=== PATIENT | male | born 1950 | race Caucasian/White ===

== ENCOUNTER 2023-03-27 08:29 | Outpatient (CLI) | payer MEDICARE, OTHER, SELFPAY ==
--- NOTE | 2023-03-27 09:57 | W.ANESCHARGE ---
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
--- NOTE | 2023-03-27 11:52 | W.ANESCHARGE ---
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
== END 2023-03-27 08:30 | disposition home or self-care (01) ==
LOC: OP CLINIC 08:33
PROVIDERS: PCP Family Medicine; Visit Provider Internal Medicine Gastroenterology
DX: Z12.11 Encounter for screening for malignant neoplasm of colon (principal); K63.5 Polyp of colon
CPT/HCPCS: 00811; 45380; 88305; 99100; J2704

== ENCOUNTER 2024-01-26 08:45 | Outpatient (RCR) | payer MEDICARE, OTHER, SELFPAY ==
--- NOTE | 2024-01-02 10:28 | PT.OPEX ---
PT [place] Outpatient Eval PT [facility] Outpatient Eval Start: 01/02/24 07:44 Freq: Status: Active Protocol: Document 01/02/24 07:44 KLV (Rec: 01/02/24 10:27 KLV [id number]) E-signed By Carrie England, PT Physical Therapy Outpatient Evaluation Insurance Information Recert Due Date 03/28/24 Insurance Name Medicare B,[employer] Medical Diagnosis Right knee OA Treating Diagnosis Right knee pain Referring MD Ovalle Subjective Subjective Luis (Josep) reports to PT with primary complaint of right knee pain following incident where he ran into a cabinet in medial aspect of knee. Denies swelling or bruising following. Imaging indicating end stage OA patellofemoral joint. He received a cortisone injection 3 weeks ago which has helped some with the pain but has not fully resolved. He currently has pain with descending> ascending stairs, squatting, bending and walking longer distances. Would like to resume normal walking and stair negotiation with minimal pain. Has not resumed any exercise since the injury occurred. PMH: L TKA 2016, h/o stent Pain Comments 4-10/24 worst Date of Last Physician Visit 12/11/23 Current Work Status Retired Objective Other/Pertinent Objective Knee ROM: -R 0-131 -L 0-120 Quad set good SLR good except extensor lag past 20 deg Vera test: + R Amelia test: + B L>R Hamstring 90/90: -R 40 deg short of full extension -L 35 deg short of full extension Gross hip ROM: WNL B LE Strength (R/L): -Knee Ext: R: 4+/5, L: 5/5 -Knee Flex: R: 5/5, L: 5/5 -Hip Abd: R: 4+/5, L: 5/5 -Hip Add: R: 5/5, L: 5/5 -Hip Ext: R: 5/5, L: 5/5 -Hip Flx: R: 4+/5, L: 5/5 TTP popliteal fossa No TTP joint line Patellar mobilization WNL all directions Functional Test Performed & Score LEFS: 60/80 Assessment Assessment/Impression Patient is a 73 year old male presenting to physical therapy for evaluation and treatment of right knee pain with x-ray indicating end stage patellofemoral OA. Patient presents with muscular restriction in hip flexor, hamstring and ITB as well as poor squatting mechanics and quad strength. These impairments are limiting the patients ability to walk long distances, negotiate stairs and squat without pain. Patient appears motivated to participate in PT and presents with good prognosis to improve mobility, strength, proprioception and return to functional activities with skilled physical therapy intervention. Plan of Care Rehabilitation Potential Good Physical Therapy Goals In 4 visits: Pt will demonstrate WNL hip and knee ROM in order to squat with pain <2/10 Pt will be able to negotiate stairs with reciprocal gait with <2/10 pain Pt will be able to walk for 30 min with <2/10 pain for community ambulation In 8 visits: Pt will exhibit 9 pt improvement in LEFS Outcome measure to demonstrate functional improvement and progress towards goals. Pt will be able to negotiate stairs with reciprocal gait with near 0/10 pain Pt will be able to walk for 60 min with <2/10 pain for cardiovascular fitness Treatment Plan/Direct Interventions Gait Training,Ice/Cold/ Vasopneumatic,Joint Mobilization,Manual Therapy, Neuromuscular Re-ed,Self-Care/ Home Management,Therapeutic Activities,Therapeutic Exercises Frequency/Duration 1x/wk for 4 weeks with additional 2-4 sessions prn based on progress Patient Will Be Discharged From Therapy Completion of LTG(s), Independent w/HEP, Independently Progressing Evaluation Billing Untimed Code Treatment Minutes 20 Complexity Low Certification Information Initial Certification Date 01/02/24 Ending Certification Date 03/28/24 Provider Signature Required Yes Provider Signature Shows Agreement With POC & Medical Necessity Physician NPI Number Write NPI# Here Physician Comment/Change : Physician Signature & Date Requested Please Sign/Date Here
== END 2024-01-26 09:20 | disposition home or self-care (01) ==
PROVIDERS: PCP Family Medicine; Visit Provider Orthopaedic Surgery
DX: M17.11 Unilateral primary osteoarthritis, right knee (principal); M25.561 Pain in right knee; Z51.89 Encounter for other specified aftercare
CPT/HCPCS: 97110; 97161

== ENCOUNTER 2024-04-18 06:09 | Day surgery (SDC) | payer MEDICARE, OTHER, SELFPAY ==
[2024-04-18] VITALS (25 sets, daily range): BP systolic 97–156; BP diastolic 53–101; PULSE 38–53; RESP 9–16; TEMP 36.3–36.8; O2SAT 95–100; BMI 26.4
--- OUTSIDE RECORDS SUMMARY | 2024-04-18 06:13 | XMS_ITS | Continuity of Care Document ---
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
--- OUTSIDE RECORDS SUMMARY | 2024-04-18 06:13 | XMS_ITS | Clinical Summary ---
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 0 04/05/20 21 Active Needle, Disp, 22 G 22 gauge x 1 ndleIndications:H ypogonadism in male As directed. 100 Each 3 01/18/20 23 Active Syringe with Needle, Disp, 3 mL 22 gauge x 1 syrgIndications:H ypogonadism in male As directed. 100 Each 3 01/18/20 23 Active testosterone cypionate (DEPO-TESTOSTERON E) 200 mg/mL injectionIndicati ons:Hypogonadism in male INJECT 100 MG(0.5ML) INTRAMUSCULAR EVERY 2 WEEKS 6 mL 1 10/31/19 24 Active lisinopriL (PRINIVIL; ZESTRIL) 20 mg tabletIndications :Benign essential HTN TAKE ONE TABLET BY MOUTH ONE TIME DAILY 90 Tablet 3 10/31/19 24 Active simvastatin (ZOCOR) 40 mg tabletIndications :Hyperlipidemia, unspecified hyperlipidemia type TAKE ONE TABLET BY MOUTH ONE TIME DAILY 90 Tablet 3 10/31/19 24 Active sildenafiL, pulm.hypertension , (REVATIO) 20 mg tabletIndications :Erectile dysfunction of organic origin 2 to 5 oral daily as needed. 90 Tablet 3 10/31/19 24 Active meclizine (ANTIVERT) 25 mg tabletIndications :Benign paroxysmal positional vertigo, unspecified laterality Take 1 Tablet (25 mg) by mouth 3 times daily if needed for Vertigo. 30 Tablet 01/17/20 24 Active methylPREDNISolon e (Medrol, Alli,) 4 mg tabletIndications :Benign paroxysmal positional vertigo, unspecified laterality Take by mouth as instructed per packaging. 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 Ovalle, [facility]) 04/04/2024 Travel 01/25/2024 1:00 PM CDT Office Visit [facility] [address] [place] [address] Trina Loco MD Follow Up (Hypogonadism) 01/25/2024 Travel 01/17/2024 1:45 PM CDT Office Visit [facility] [address] [place] [phone] Danita Ching PA Lightheaded (Lightheadedness, worse in morning, feeling off balance. 01/15/24 noted symptoms started while lying in bed. /History of vertigo.) 01/17/2024 Travel from Last 3 Months Immunizations Name Administration Dates Next Due AMB INFLUENZA IIV3 (AGE 65+ YRS) PF (Flu Clinic Only) 02/01/2018 HepA-HepB (Twinrix) 07/23/2018,06/18/20182018 Influenza RIV4 (Age 18+ Year s) PRESERV FREE 03/05/2019 Influenza Virus, Unspecified 01/31/2017, 03/29/2016,02/06/2015,03/11,01/23/2013,03/16/2012,01/21/2011 Influenza, High-dose Inactivated 03/11/2024 Influenza, High-dose Quadriv alent Inactivated 02/09/2023,02/11/2022,02/26/2021,02/06 Pneumococcal Poly,23-Valent (Pneumovax) 11/21/2019 Pneumococcal conj 13-Valent (Prevnar 13) 06/18/2018 Tdap 08/06/2018,12/30/2008 Typhoid (injectable) 06/25/2018 Zoster (Shingrix-RZV, recombinant) 09/27/2019, Zoster (Zostavax-ZVL, live) 06/20/2014 Family History Medical History Relation Name Comments Melanoma Brother 1 Diabetes Brother 2 Heart attack Father late Lymphoma Father 70's Cancer-colon Mother 70's Anesthesia Problem No Family History Cancer-prostate No Family History Heart Disease No Family History Relation Name Status Comments Brother 1 Brother 2 Father Mother Social History Tobacco Use Types Packs/Day Years Used Date Smoking Tobacco: Never Smokeless Tobacco: Never Tobacco Cessation:Counseling Given: No Alcohol Use Standard Drinks/Week Comments Yes 0 (1 standard drink = 0.6 oz pur e alcohol) [facility] Utilities Answer Date Recorded Do you have trouble paying f or utilities (for example, heat, electricity, water, phone)? Yes 07/31/2023 PHQ-2 Answer Date Recorded PHQ-2 TOTAL SCORE 0 10/31/2023 Social Connections Answer Date Recorded Do you often feel lonely or isolated from those around you? 0 07/31/2023 Alcohol Use Answer Date Recorded How often do you have a drink containing alcohol ? 3 12/08/2022 How many drinks containing a lcohol do you have on a typical day when you are drinking? 0 12/08/2022 How often do you have five or more drinks on one occasion? 0 12/08/2022 Financial Resource Strain Answer Date R ecorded Difficulty of Paying Living Expenses 3 07/31/2023 Difficulty of Paying Living Expenses Not on file 07/31/2023 Food Insecurity Answer Date Recorded Do you worry your food will run out before you are able to buy more? 1 07/31/2023 Transportation Needs Answer Date Record ed Does lack of transportation keep you from medica l appointments? 1 07/31/2023 Does lack of transportation keep you from work, meetings or getting things that you need? 1 07/31/2023 Housing Stability Answer Date Recorded What is your housing situation today? 1 07/31/2023 Sex and Gender Information Value Date Recorded Sex Assigned at Not on file Legal Sex Male 10:34 AM ACIDIZER WATER WELL Gender Identity Not on file Sexual Orientation Not on file Travel History Travel Start Travel End [place] 03/22/2024 03/24/2024 Obstetrics History Last Filed Vital Signs Vital Sign Reading Time Taken Comments Blood Pressure 117/71 04/04/2024 8:30 AM ACIDIZER WATER WELL Pulse 58 04/04/2024 8:30 AM ACIDIZER WATER WELL Temperature 36.7 C (98 F) 01/17/2024 2:11 PM CDT Respiratory Rate 18 01/17/2024 2:11 PM CDT Oxygen Saturation 99% 04/04/2024 8:30 AM ACIDIZER WATER WELL Inhaled Oxygen Concentration - - Weight 88.3 kg (194 lb 9.6 oz) 04/04/2024 8:30 A M [employer]ER W[employer] WELL Height 185 cm (6' 0.84) 04/04/2024 8:30 AM ACIDIZER WATER WELL Body Mass Index 25.79 04/04/2024 8:30 AM ACIDIZER WATER WELL Plan of Treatment Upcoming Encounters Date Type Department Care Team (Late st Contact Info) Description 07/25/2024 8:30 AM CDT Office Visit [facility] [address] [place] [address] Nomi Walton MD [address] [place] [address] 01/23/2025 10:15 AM CDT Office Visit [facility] [address] [facility] [place] [phone] Trina Loco MD [address] [facility] [place] [address] Health Maintenance Due Date Last Done Comments RSV vaccine for adults or (1 - Risk 60-74 years 1-dose series) 2012 Depression screening for age 12+ 10/30/2024 10/31/2023, 12/08/2022, 12/08/2022, Additional history exists Medicare Wellness for age 65+ 10/31/2024, 12/08/2022, 12/01/2020, Additional history exists BMI (ht and wt on same day) for age 18+ 04/04/2025 04/04/2024, 10/31/2023, 03/15/2023, Additional history exists Tetanus booster 08/06/2028 08/06/2018, 12/30/2008 Lipids for age 45-75 10/30/2028 10/31/2023, 12/08/2022, 12/06/2021, Additional history exists Colonoscopy through age 75 03/27/2030 03/27/2023, Hepatitis C screening for ag e 18-79 Completed 06/18/2018 Tdap Completed 08/06/2018, 12/30/2008 Zoster (shingles) series for age 50+ Completed 09/27/2019, 04/11/2019, 06/20/2014 Pneumococcal series for age 50+ Completed , 06/18/2018 COVID-19 vaccine series Completed 01/29/20 24, 10/04/2023, 02/15/2023, Additional history exists Influenza for age 65+ Completed 03/11/2024 , 02/09/2023, 02/11/2022, Additional history exists Procedures Procedure Name Priority Date/Time Associated Diagnosis Comments CA READING EKG - NO CHARGE, COMP ONLY Routine 04/09/2024 11:28 AM AC[employer]IZER W[employer] WELL Screening for heart disease EKG 12 LEAD Routine 04/09/2024 11:28 AM AC[employer]IZER WATER WELL Screening for heart disease HEMOGLOBIN Routine 04/04/2024 8:59 AM ACIDIZER WATER WELL Preop examination POTASSIUM Routine 04/04/2024 8:59 AM ACIDIZER WATER WELL Preop examination LIPID PANEL W REFLEX MEASURED LDL Routine 10/31/2023 9:07 AM CDT Hyperlipidemia, unspecified hyperlipidemia type COLONOSCOPY SCREENING Routine 03/27/2023 12:00 AM AC[employer]ER W[employer] WELL Screening for colon cancer ANTI HCV Routine 06/18/2018 9:00 AM ACIDIZER WATER WELL Need for hepatitis C screening test from Last 3 Months or Most Recently Relevant to Health Maintenance Results * EKG 12 LEAD (04/09/2024 11:28 AM AC[employer]IZER WATER WELL) us Nomi Walton MD EKG ORD Final Result * CA READING EKG - NO CHARGE, COMP ONLY (04/09/2024 11:28 AM ACIDIZER WATER WELL) us Nomi Walton MD PB - PROVIDER READINGS Final Result * HEMOGLOBIN (04/04/2024 8:59 AM ACIDIZER WATER WELL) HEMOGLOBIN 16.9 13.2 - 17.1 g/dL [facility] Blood BLOOD SPECIMEN / Unknown 04/04/2024 8:59 AM AC[employer]IZER WATER WELL 04/04/2024 9:00 AM AC[employer]IZER WATER WELL us Nomi Walton MD HEMATOLOGY Final Result [facility] [address] [place] [address], [facility] [address] [place] [address] * POTASSIUM (04/04/2024 8:59 AM ACIDIZER WATER WELL) POTASSIUM 4.6 3.5 - 5.3 mmol/L [facility] Blood BLOOD SPECIMEN / Unknown 04/04/2024 8:59 AM AC[employer]IZER WATER WELL 04/04/2024 9:00 AM ACIDIZER WATER WELL us Nomi Walton MD CHEMISTRY Final Result [facility] [address] [place] [address], [place] [phone] [facility] [address] [place] [address] * LIPID PANEL W REFLEX MEASURED LDL (10/31/2023 9:07 AM CDT) Pathologist [facility] CHOLESTEROL,TOTAL 116 100 - 199 mg/dL 10/31/2023 5:57 PM CDT [facility] Comment: Cholesterol, Total Reference Ranges Desirable <200 mg/dL Borderline 200-239 mg/dL High >=240 mg/dL TRIGLYCERIDES 81 <150 mg/dL 10/31/2023 5:57 PM CDT [facility] HDL CHOLESTEROL 43 >40 mg/dL 5:57 PM CDT [facility] NON-HDL CHOLESTEROL 73 <145 mg/dl 10/31/2023 5:57 PM CDT [facility] CHOL/HDL RATIO 2.70 <4.50 10/31/2023 5:57 PM CDT [facility] LDL CHOLESTEROL 57 <=130 mg/dL 10/31/2023 5:57 PM CDT [facility] VLDL CHOLESTEROL 16 <=30 mg/dL 10/31/2023 5:57 PM CDT [facility] PROVIDER ORDERED STATUS RANDOM 10/31/2023 5:57 PM CDT [facility] Blood BLOOD SPECIMEN / Unknown Venipuncture / Unknown 10/31/2023 9:07 AM CDT 10/31/2023 9:08 AM CDT us Nomi Walton MD CHEMISTRY Final Result [facility] [address] [place] [address], [place] * COLONOSCOPY SCREENING (03/27/2023 12:00 AM AC[employer]IZER WATER WELL) us Nomi Walton MD GI PROCEDURE ORD Final Result * ANTI HCV (06/18/2018 9:00 AM ACIDIZER WATER WELL) HEPATITIS C ANTIBODY Non-React stephan Non-React stephan 06/18/2018 4:23 PM [employer]ER WATER WELL [facility] Comment:Antibodies to HCV no t detected; does not exclude the possibility of exposure to HCV. Blood BLOOD SPECIMEN / Unknown Venipuncture / Unknown 06/18/2018 9:00 AM AC[employer]IZER WATER WELL 06/18/2018 9:01 AM ACIDIZER WATER WELL us Nomi Walton MD SEND OUTS Final Result [facility] 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
--- OUTSIDE RECORDS SUMMARY | 2024-04-18 06:13 | XMS_ITS | Clinical Summary ---
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 Active omega-3 fatty acid (FISH OIL) 1000 MG capsule Take 1 Cap by mouth one time a day. 2 Active Multiple Vitamin (MULTIVITAMIN) tablet Take 1 Tab by mouth one time a day. 2 Active Cholecalcifero l (VITAMIN D) 400 UNIT Capsule Take 1 Cap by mouth one time a day. 2 Active acetaminophen (TYLENOL) 500 MG tablet Take 2 Tabs by mouth four times a day. Limit acetaminophen to 4000 mg per day from all sources. 6 Active ofloxacin (OCUFLOX) 0.3 % ophthalmic solution Place 1 Drop into the left eye three times a day starting three days prior to surgery continue until gone. 5 mL 06/29/2016 11:18 AM CDT 7 Active prednisoLONE acetate (PRED FORTE) 1 % ophthalmic suspension Place 1 Drop into the left eye three times a day starting three days prior to surgery continue until gone. 5 mL 06/29/2016 11:18 AM CDT 7 Active ketorolac (ACULAR) 0.5 % ophthalmic solution Place 1 Drop into the left eye three times a day starting three days prior to surgery continue until gone. 5 mL 06/29/2016 11:18 AM CDT 7 Active Misc. Devices Misc Please provide patient with a Darco shoe for the left foot. Also known as a wooden shoe. 1 Each 7 Active simvastatin (ZOCOR) 40 MG tablet Take 1 Tab by mouth one time a day. 90 Tab 1 03/01/2017 8:12 AM LINUX SYSTEMS ADMINISTRATOR 7 Active lisinopril (PRINIVIL, ZESTRIL) 20 MG tablet Take 1 Tab by mouth one time a day. 90 Tab 1 04/05/2017 11:35 AM LINUX SYSTEMS ADMINISTRATOR 7 Active sildenafil citrate (REVATIO) 20 MG tablet Take 2-5 tablets by mouth one hour prior to intercourse as needed. 30 Tab 5 04/05/2017 11:35 AM LINUX SYSTEMS ADMINISTRATOR 7 Active cephALEXin (KEFLEX) 500 MG capsule TAKE 4 CAPSULES BY MOUTH 1 HOUR BEFORE DENTAL APPOINTMENT 12 Cap 8 Active Active Problems Problem Noted Date Diagnosed Date HCD (health care directive) 06/29/2015 Dyslipidemia 06/20/2012 Hypertension GERD (gastroesophageal reflux disease) Testosterone deficiency Erythrocytosis Overview (08/06/2011): IMO Update 01/25 Coronary artery disease Erectile dysfunction Overview (08/06/2011): IMO Update 01/25 OA (osteoarthritis) Overview (06/08/2012): severe, 1st MTP Prediabetes Resolved Problems Problem Noted Date Diagnosed Date Resolved Date Decreased ROM of left knee 07/01/2015 0 08/20/2015 Decreased strength involving knee joint 07/01/2015 08/20/2015 Difficulty in walking involv ing lower leg joint 07/01/2015 08/20/2015 Overview (07/01/2015): s/p L TKA Chest pain 06/20/2012 06/21/2013 SOB (shortness of breath) 06/20/2012 Giardia 06/20/2014 Overview (07/31/2012): July 2012, O&P + Immunizations Name Administration Dates Next Due Influenza (3+ Yrs) NPF-Multi Dose Vial (Flu Clinic) 02/06/2015,01/21/2011 Influenza (3+ Yrs) Trivalent PF-Single Dose Syringe/Vial (Flu Clinic) 01/23/2013 Influenza Quad Preservative Free 01/31/2017,03/17,03/11/2014 Influenza Trivalent Preservative Free 03/16/2012 Tdap (7 years and older) 12/30/2008 Zoster Zostavax (Shingles) 06/20/2014 Surgical History Surgery Date Site/Laterality Comments KNEE ARTHROSCOPY right TONSILLECTOMY AND ADENOIDECTOMY CORONARY ANGIOPLASTY WITH STENT PLACEMENT June 2010; drug eluting stent to mid RCA COLONOSCOPY 08/09/2005 HERNIA REPAIR bilateral inguinal COLONOSCOPY 03/04/2013 5 year surveillance TOTAL KNEE ARTHROPLASTY 06/26/2015 Knee/Left Procedure: LEFT TOTAL KNEE ARTHROPLASTY; Surgeon: Carlos Cotto MD; Location: [facility] OR Medical devices from this surgery are in the Medical Devices section. Medical History Medical History Date Comments Hypertension GERD (gastroesophageal reflux disease) Testosterone deficiency Erythrocytosis Erectile dysfunction OA (osteoarthritis) severe, 1st MTP Giardia July 2012, O&P + Prediabetes Coronary artery disease one sten t.2010 HCD (health care directive) 06/29/2015 HCD (health care directive) 06/29/2015 Family History Medical History Relation Comments Diabetes Brother Cancer Father lymphoma Cardiovascular Disease Father coronary artery disease developing in his 60s Cancer Mother colon Relation Status Comments Brother Alive DM Father (Age 70) lymphoma Mother (Age 70's) colon cancer Social History Tobacco Use Types Packs/Day Years Used Date Smoking Tobacco: Never Smokeless Tobacco: Never Alcohol Use Standard Drinks/Week Comments Yes 0 (1 standard drink = 0.6 oz pur e alcohol) 2/week Sex and Gender Information Value Date Recorded Sex Assigned at Not on file Legal Sex Male 4:00 PM 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 SYSTEMS ADMINISTRATOR Gender Identity Not on file Sexual Orientation Not on file Obstetrics History Last Filed Vital Signs Vital Sign Reading Time Taken Comments Blood Pressure 147/71 07/14/2016 9:50 AM CDT Pulse 61 07/14/2016 9:50 AM CDT Temperature 35.9 C (96.7 F) 06/21/2016 8:06 AM LINUX SYSTEMS ADMINISTRATOR Respiratory Rate 20 06/21/2016 8:06 AM LINUX SYSTEMS ADMINISTRATOR Oxygen Saturation 95% 06/29/2015 10:47 AM CDT Inhaled Oxygen Concentration - - Weight 95.7 kg (211 lb) 06/21/2016 8:06 AM LINUX SYSTEMS ADMINISTRATOR Height 182.9 cm (6') 06/21/2016 8:06 AM LINUX SYSTEMS ADMINISTRATOR Body Mass Index 28.62 06/21/2016 8:06 AM LINUX SYSTEMS ADMINISTRATOR Plan of Treatment Health Maintenance Due Date Last Done Comments CT Colonography 1950 Cologuard 1950 FIT/FOBT 1950 Sigmoidoscopy 1950 RSV Vaccination (60+ yrs) (Abrysvo/Arexvy) (1 - Risk 60-74 years 1-dose series) 2012 Shingrix (Zoster recombinant) vaccine (Standing Order) (1 of 2) 08/15/2014 Pneumococcal Vaccine: 65+ yrs (Standing Order) (1 of 1 - PCV) 2017 COLONOSCOPY Q 5 YRS 03/04/2018 03/04/2013, 03/04/2013 (Previously completed) TETANUS (Standing Order) 12/30/2018 12/30/2008 VASCULAR LIPID PROFILE Q5 YEARS (Standing Order) 06/21/2021 06/21/2016, 06/15/2015, 06/20/2014, Additional history exists Colonoscopy 03/04/2023 03/04/2013 Colorectal Cancer Screening 03/04/2023 COVID-19 Vaccine ( season) 2023 Influenza Vaccine Seasonal (Standing Order) (#1) 2023 01/31/2017, 03/29/2016, 02/06/2015, Additional history exists PERTUSSIS (Standing Order) Completed 12/30/2008 HPV Vaccine (Standing Order) Aged Out No longer eligible based on patient's age to complete this topic Hepatitis B Vaccine (Standing Order) Aged Out No longer eligible based on patient's age to complete this topic Medical Devices Implanted Type Area Wind Energy Systems Installer Device Identifier Shelf Expiration Date Model / Serial / Lot Cement Bone 40g Speedset Radiopaque Simplex P 6192-1-001 - [id number] Implanted:Qty: 2 on 06/26/2015 by Carlos Cotto MD at [facility] Left: Knee JULIA 01/14/2017 6192-1-001 / N/A / [id number] Series A Pat Std 40 3 Peg [id number] - [id number] Implanted:Qty: 1 on 06/26/2015 by Carlos Cotto MD at [facility] Left: Patella BIOMET 04/07/2020 [id number] / N/A / [id number] Plate Bio Tibial I-Beam 83mm [id number] - [id number] Implanted:Qty: 1 on 06/26/2015 by Carlos Cotto MD at [facility] Left: Tibia BIOMET 11/27/2024 [id number] / N/A / [id number] Femur Left 72.5 Mm Ps [employer] [id number] - [id number] Implanted:Qty: 1 on 06/26/2015 by Carlos Cotto MD at [facility] Left: Femur BIOMET 06/06/2024 [id number] / N/A / [id number] Tibia Ps 12 Mm X 79/83 Mm [employer] [id number] - [id number] Implanted:Qty: 1 on 06/26/2015 by Carlos Cotto MD at [facility] Left: Tibia BIOMET 08/29/2019 [id number] / N/A / [id number] Procedures Procedure Name Priority Date/Time Associated Diagnosis Comments LIPID PROFILE Routine 06/21/2016 9:03 AM LINUX SYSTEMS ADMINISTRATOR Annual physical exam Other hyperlipidemia Coronary artery disease involving [place] coronary artery of [place] heart without angina pectoris COLONOSCOPY Routine 03/04/2013 12:00 AM LINUX SYSTEMS ADMINISTRATOR Colon cancer screening from Last 3 Months or Most Recently Relevant to Health Maintenance Results * (ABNORMAL) LIPID PANEL (06/21/2016 9:03 AM LINUX SYSTEMS ADMINISTRATOR) Cholesterol 123 114 - 200 mg/dL 06/21/2016 3:31 PM LINUX SYSTEMS ADMINISTRATOR [facility] HDL Cholesterol 37(L) 40 - 60 mg/dL 06/21/2016 3:31 PM [facility] Triglycerides 114 10 - 200 mg/dL 06/21/2016 3:31 PM [facility] LDL Cholesterol, Calculated 63 mg/dL 06/21/2016 3:31 PM [facility] Blood specimen (specimen) BLOOD SPECIMEN / Unknown Venipuncture / Unknown 06/21/2016 9:03 AM LINUX SYSTEMS ADMINISTRATOR 06/21/2016 9:03 AM LINUX SYSTEMS ADMINISTRATOR Narrative [facility] - 06/21/2016 3:31 PM LINUX SYSTEMS ADMINISTRATOR Triglyceride If patient is non-fasting, the result of the triglyceride is invalid. Triglyceride Reference Ranges Normal: 10-200 mg/dL Borderline High: 150-200 mg/dL High: 201-499 mg/dL Very High: =500 mg/dL Total Cholesterol Reference Ranges Desirable: <200 mg/dL Borderline High: 200-239 mg/dL High: >239 mg/dL Calculated LDL Cholesterol Reference Ranges Optimal: <100 mg/dL Near Optimal: 100-129 mg/dL Borderline High: 130-159 mg/dL High: 160-189 mg/dL Very High: >189 mg/dL us Rachel Luis MD EC CHEMISTRY ORDERABLES ABN Fi nal Result [facility] [address] [place] [address] * COLONOSCOPY (03/04/2013 12:00 AM LINUX SYSTEMS ADMINISTRATOR) 03/04/2013 Narrative Transcriptions Lucas Lopes MD - 03/04/2013 3:[address] [facility] Patient Name: ADALBERTO RYAN Date of Service: 03/04/2013 : 1950 Age: 62Y Sex: M DC Site MRN: Patient Loc/Room #: [facility]/ Provider: Lucas Lopes MD, Gastroenterology GI PROCEDURE SITE: [facility] ORDERED BY: RACHEL LUIS INDICATIONS: Carcinoma screening. Family history of first-degree relativewith colon carcinoma. INSTRUMENT: Olympus adult variable stiffness colonoscope. MEDICATIONS: Versed 5 mg and fentanyl 100 mcg slow IV push preprocedure. PROCEDURE: After informed consent was obtained to include discussion ofindications, risks, inclusive but not limited to missed lesions, pain,infection, perforation, hemorrhage, benefits, and alternatives, thepatient underwent colonoscopy examination. The Olympus adult variablestiffness colonoscope was advanced through the anus into the rectal vaultunder blind intubation, where direct visualization was utilized to advancethrough a well-prepped colon to the cecal base. Cecal anatomy to includethe appendiceal orifice and ileocecal valve were identified. Mucosalinspection from the cecal base to the dentate line was performed. Nomucosal abnormalities were noted throughout the examination. Retroflexionin the rectal vault revealed no abnormalities. The procedure wasterminated and the patient recovered. ASSESSMENT: 1. Normal colonoscopy examination with no evidence of colorectalneoplastic disease. 2. Family history of first-degree relative with colon carcinoma. RECOMMENDATIONS: Repeat colonoscopy examination in 5-year interval isindicated based on current guidelines. POST CONSCIOUS SEDATION/ANESTHESIA NOTE The patient was monitored post IV conscious sedation with continuous EKGand pulse monitoring, as well as periodic blood pressure monitoring. Uponthe patient regaining an alert level of sustained consciousness and thecontinuous O2 saturation and blood pressure monitoring confirming recoveryfrom the anesthetic effect of the intravenous medications, the patient wasdischarged in the care of an adult attendant. Guidelines for immediate medical attention post procedure were given tothe patient in a verbal and written format. ADDENDUM: The patient's family history of 1st-degree relative with colon carcinomaactually is in his mother at age greater than 60. Colon carcinomaincidence most likely in the late 70s to early 80 range. Therefore, thepatient now is considered an average risk individual and repeatexamination prior to a 10-year timeframe not indicated based oncurrent guidelines. Lucas Lopes MD [facility] Gastroenterology cc: Rachel Luis MD /CHRISTY Job ID: [id number] /argelia/darrell(ord,add) Document ID: [id number] us Rachel Luis MD EC PROCEDURES Final Result from Last 3 Months or Most Recently Relevant to Health Maintenance Insurance PHARMACY [facility] Advance Directives For more information, please contact: [phone] Documents on File Type Date Recorded Patient Canopy Inspector Expl anation Advance Directive 06/29/2015 2:23 PM ADVAN CE DIRECTIVE * Full Code (Latest Code Status on File) Date Activated Date Inactivated Comments 06/26/2015 10:08 AM 06/29/2015 3:22 PM * Full Code Date Activated Date Inactivated Comments 06/20/2012 11:31 AM 06/20/2012 7:56 PM * Full Code Date Activated Date Inactivated Comments 06/20/2012 7:17 AM 06/20/2012 11:31 AM * Full Code Date Activated Date Inactivated Comments 06/20/2012 1:02 AM 06/20/2012 7:17 AM Care Teams Plant Supervisor Relationship Specialty Start Date End Date Elsewhere, Pcp PCP - General 04/27/18
[2024-04-18] MEDS: OXYCODONE (CR) 10 MG TAB.ER.12H PO (06:30)
[2024-04-18] MEDS: ACETAMINOPHEN 500 MG TABLET 1000 MG PO ×2 (06:30→13:00)
[2024-04-18] MEDS: SODIUM CHLORIDE 0.9 % (FLUSH) 10 ML SYRINGE IVF (06:30)
[2024-04-18] MEDS: LACTATED RINGERS 1000 ML 1,000 ML 100 ML IV (06:30)
[2024-04-18] MEDS: CELECOXIB 200 MG CAPSULE PO (06:30)
--- NOTE | 2024-04-18 07:06 | SUR.PREOP ---
TIME?OUT:?0706 PT/RN/ARMATURE WINDER AUTOMOTIVE?VERIFICATION?OF?SURGICAL?SITE,?PROCEDURE,?AND?CONSENT OBTAINED?PRIOR?TO?INVASIVE?PROCEDURE.
[2024-04-18] MEDS: fentaNYL 100 MCG/2 ML inj IVP (07:10)
[2024-04-18] MEDS: MIDAZOLAM HCL 1 MG/ML inj IVP (07:10)
--- NOTE | 2024-04-18 07:22 | W.PM.NB ---
Nerve Block Nerve Block Time Seen by Provider: 07:10 Date Seen: 04/18/24 Type of block requested by surgeon for post-operative analgesia: adductor canal Side: right Time out performed: Yes Verification of patient name: Yes Verification of date of : Yes Site marking: site marked Name of person performing procedure: Saxton Continuous monitoring Was continuous monitoring of O2 sat, B/P, utility tractor operator, recorded every 15 minutes?: Yes Procedure Checklist: sterile prep, needles and gloves Ultrasound guided. Images saved: Yes Medications given in 5ml increments after negative aspiration: Marcaine %: 0.5 mL: 25 Needle gauge: 22 Decadron (mg): 10 Precedex (mcg): 10 Patient tolerated procedure well: Yes Block Charges Block Charge (with Pro Fee): Femoral Nerve Use of Ultrasound Machine for Block: Yes- US Guidance/pain block
[2024-04-18] MEDS: CEFAZOLIN 2 GM INJ IVP (07:40)
[2024-04-18] MEDS: TRANEXAMIC ACID 100 MG/ML INJ 1000 MG IV (07:45)
[2024-04-18] MEDS: LACTATED RINGERS 500 ML 500 ML 125 ML IV (08:39)
--- NOTE | 2024-04-18 08:56 | PM.ORPRC ---
Procedure Note Date of procedure: 04/18/24 Procedure: PREOPERATIVE DIAGNOSIS: Right knee osteoarthritis POSTOPERATIVE DIAGNOSIS: Right knee osteoarthritis NAME OF OPERATION: Right total knee arthroplasty SURGEON: Krishan Ovalle MD VICE PRESIDENT OF BRAND MANAGEMENT: Soraya Martinez PA-C ANESTHESIA: Spinal ESTIMATED BLOOD LOSS: 0 mL COMPLICATIONS: None SPECIMENS: None DRAINS: None PREOPERATIVE ANTIBIOTICS: Ancef 2 grams IMPLANTS: 1. J&J Attune # 8 posterior stabilized femur 2. # 8 fixed-bearing tibia 3. # 8 posterior stabilized, 8 mm fixed-bearing polyethylene 4. 41 patella INDICATIONS: The patient is a 73-year-old with a longstanding history of severe, unrelenting right knee pain secondary to end-stage (grade IV) right knee osteoarthritis. Despite appropriate nonoperative management, including activity modification, anti-inflammatories, [id number] pain medication, bracing, physical therapy, and injections they continue to have pain and disability. Operative intervention was offered. The risks, benefits and expected outcomes were discussed in detail. These included but were not limited to: Infection, bleeding, injury to blood vessel or nerve, venous thromboembolism. All questions were answered to their satisfaction. Use of an quality assurance assistant was necessary throughout the case for patient positioning and safety, soft tissue retraction, and closure. PROCEDURE: Spinal anesthesia was administered. The patient was placed supine on the operating table. The quality assurance assistant made sure the patient was positioned appropriately. The lower extremity was prepped and draped in the usual sterile fashion. The limb was exsanguinated with the Guillermo bandage. The pneumatic tourniquet was inflated to 300 mmHg. A standard anterior incision was made with the knee in flexion. Subcutaneous dissection was sharply taken through fascial layer #1. Full-thickness medial and lateral flaps were elevated. The quality assurance assistant retracted the soft tissues and protected them throughout the case. A standard subvastus approach was made. The patella was subluxed. The infrapatellar fat pad was preserved. The menisci and cruciate ligaments were sharply d?brided. Marginal osteophytes were d?brided with the rongeur. The drill was used to penetrate the femoral canal. The canal was aspirated and irrigated with pulse lavage. The intramedullary femoral guide was placed for a 5-degree valgus cut, removing 10 mm off the distal femur. The saw was used to make the cut. Whitesides line and the trans epicondylar axis were marked. The femoral sizing guide was pinned onto the distal femur. Three degrees of external rotation nicely parallels the transepicondylar axis. Pins were placed for posterior referencing. The four-in-one cutting guide was pinned onto the distal femur. The anterior, posterior, and chamfer cuts were made. The quality assurance assistant protected the collateral ligaments. The box cutting guide was pinned. The box cuts were made. The boxed trial was placed and was an excellent fit. Drill holes for the lugs were made. Attention was then turned to the proximal tibia. The extramedullary tibial guide was placed for a neutral varus/valgus cut with 5 degrees of posterior slope, removing 2 mm based off the medial tibial surface. The quality assurance assistant protected the collateral ligaments and the neurovascular bundle. The saw was used to make the cut. Trial components were placed. The knee was nicely balanced in both flexion and extension. The trial components were removed. The tray was placed in appropriate rotation, parallel to our tibial cutting pins. It was pinned by the quality assurance assistant and the drill and the punch were used. The tray was removed. The punch was used again. We placed a bone plug in the femoral canal. Attention was then turned to the patella. [place] patellar thickness was 26 mm. The lobster claw resection guide was used with the 9.5 mm quinn. The saw was used to make the cut. Drill holes were made by the quality assurance assistant. The trial was placed and was an excellent fit. Cancellous surfaces were irrigated with pulse lavage and thoroughly dried by the quality assurance assistant. We cemented the tibial component, then the femoral component. We impacted the 8 mm polyethylene onto the tibial tray. The knee was brought into full extension. We then cemented the patellar component. Excessive cement was removed. The cement was allowed to harden. The knee was taken through a range of motion and was found to be nicely balanced in both flexion and extension. The patella tracks centrally. The quality assurance assistant did a three minute dilute Betadine solution soak. The quality assurance assistant irrigated the wound with 3 liters of normal saline via pulse lavage. The quality assurance assistant reapproximated the extensor mechanism with #1 Vicryl in an interrupted [id number] fashion. The quality assurance assistant then ran the extensor mechanism with a #1 PDO Stratafix. The quality assurance assistant closed the subcutaneous tissues with a 3-0 Stratafix and the skin with a running 3-0 Stratafix in a subcuticular fashion. Glue was used to seal the skin. The quality assurance assistant placed a dry dressing. Sponge and needle counts were correct x2. The patient tolerated the procedure well. There were no apparent complications. They were carefully transferred to the hospital bed and taken to the postanesthesia care unit in satisfactory condition. PLAN: The patient will be mobilized with physical therapy. Aspirin will be used for DVT prophylaxis. They will be discharged to home once medically appropriate.
--- NOTE | 2024-04-18 09:41 | W.ANESCHARGE ---
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
--- NOTE | 2024-04-18 09:53 | CRLHL7_ITS ---
For Patients: As a result of the Cures Act, medical imaging exams and procedure reports are released immediately into your electronic medical record. You may view this report before your referring provider. If you have questions, please contact your health care provider. Indication: Postop TKA Technique: Two views right knee Findings/Impression: Hardware from a right total knee arthroplasty is in satisfactory position. Bone alignment is normal. No sign of acute fracture. Postop changes are within normal limits. Dictated by Yg Cornelius MD @ 04/18/2024 2:27:55 PM (Electronically Signed)
[2024-04-18] MEDS: OXYCODONE 5 MG TABLET PO ×2 (10:55→14:45)
--- NOTE | 2024-04-18 14:01 | SUR.PHASEII ---
pt ambulated to bathroom, didn't void, pt reports dizziness, wheelchair back to room. Pt states the dizziness passed and is ready for PT. Wheelchair ride down to PT
--- NOTE | 2024-04-18 14:39 | SUR.PHASEII ---
pt back from PT, tried voiding without success. Pt sitting in chair reports pain in knee 8/10. see FLACC scale. Encouraged him to finish his jug of water.
--- NOTE | 2024-04-18 15:28 | SUR.PHASEII ---
Joselyn RN and Carrie RN tried bladder scanning patient. Both RNs were able to get max 16cc. Pt tried to void, without success. Brought pt Pedialyte to drink. Encouraged oral intake. pt and in room
--- NOTE | 2024-04-18 16:03 | SUR.PHASEII ---
Spoke with Dr. Ovalle via phone regarding patient's inability to void. Patient ok to discharge. Patient to return if feeling uncomfortable like he needs to void but is unable to per Dr. Ovalle.
== END 2024-04-18 16:46 | disposition home or self-care (01) ==
LOC: OR 06:12
PROVIDERS: PCP Family Medicine; Visit Provider Orthopaedic Surgery
PROC: (CPT 27447; principal; 2024-04-18 07:30)
DX: M17.11 Unilateral primary osteoarthritis, right knee (principal); G89.18 Other acute postprocedural pain; I10 Essential (primary) hypertension; I25.10 Atherosclerotic heart disease of native coronary artery without angina pectoris
CPT/HCPCS: 27447; 01402; 64447; 73560; 76942; 97110; 97116; 97161; 99100; A9270; C1776; J0665; J0690; J1100; J2250; J2405; J2704; J3010; J7120

== ENCOUNTER 2024-06-03 14:30 | Outpatient (RCR) | payer MEDICARE, OTHER, SELFPAY ==
--- NOTE | 2024-04-16 08:56 | PT.OPEX ---
PT [place] Outpatient Eval PT [facility] Outpatient Eval Start: 04/15/24 09:30 Freq: Status: Active Protocol: Document 04/16/24 08:27 MICHEL (Rec: 04/16/24 08:53 MICHEL [id number]) E-signed By Tino Ceja PT Physical Therapy Outpatient Evaluation Insurance Information Insurance Name Medicare B,[employer] Medical Diagnosis Right knee OA Pre-op right TKA Treating Diagnosis Right knee pain Decreased right knee ROM and strength Referring MD Ovalle Subjective Preferred Name Josep Subjective Pt. reports longstanding and progressive right knee pain and dysfunction due to OA without any relief following a cortisone injection. He had a left knee TKA 8 years ago which he did well with. Recent X-rays reveal end stage patellofemoral OA. He is very active and exercises regularly . He lives with his in a split level home with bedroom, bathroom and laundry all on one floor. He has one step without railing to get into house from the garage. 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 Health history includes; HTN, high cholesterol, history of heart stent, and left TKA. No other musculoskeletal limitations or problems are noted. He and his are traveling to [facility] in August of 2024 so he needs to be able to walk and navigate steps without difficulty following his TKA surgery. Pain Comments 9 Date of Last Physician Visit 03/04/24 Date of Surgery (If applicable) 04/18/24 Current Work Status Retired Objective Other/Pertinent Objective Gait: Mild limp right side without assistive device UE AROM/Strength: WNL Core strength: WNL Hip ROM: WNL bilaterally Knee ROM: Left 0-125; Right 0- 130 Quad strength: 4+/5 right 5/5 left Assessment Assessment/Impression Objectively, pt. demonstrates mild limp due to right knee dysfunction/pain/varus; mild loss of right knee ROM with mild quad weakness; good UE ROM and strength; good core control; and excellent understanding of TKA protocol and process. He would benefit from skilled therapy today for pre-op education as well as post-op therapy for TKA protocol in an effort to gain optimal overall function following right TKA on 04/18/24. Primary Functional Limitations walking, steps, squats Plan of Care Rehabilitation Potential Excellent Physical Therapy Goals By end of session today, patient will: Demonstrate appropriate gait pattern with FWW to utilize post surgery for optimal safety when ambulating Demonstrate ability to negotiate stairs using appropriate stair pattern post surgery for optimal safety when at home and in community Verbalize understanding of most appropriate home set up including needed equipment for optimal safety and recovery post surgery Be independent in HEP program to show ability to perform appropriate exercises post surgery LT. Pt. will be indep. with HEP for self maintenance in 8 weeks. 2. Pt. will be able to walk without a limp without assistive device in 8 weeks. 3. Pt. will demonstrate improved quad and core strength to functional level in 8 weeks. 4. Pt. will demonstrate functional knee AROM (0-120) to allow regular ADL's in 8 weeks. Coordination/Communication With Referral Source Treatment Plan/Direct Interventions Gait Training,Joint Mobilization,Manual Therapy, Neuromuscular Re-ed,Self-Care/ Home Management,Therapeutic Exercises Patient Will Be Discharged From Therapy Independent w/HEP, Independently Progressing Evaluation Billing Complexity Low Certification Information Initial Certification Date 04/16/24 Ending Certification Date 07/15/24 Provider Signature Required Yes Provider Signature Shows Agreement With POC & Medical Necessity Physician NPI Number Write NPI# Here Physician Comment/Change : Physician Signature & Date Requested Please Sign/Date Here
== END 2024-06-03 16:13 | disposition home or self-care (01) ==
PROVIDERS: PCP Family Medicine; Visit Provider Orthopaedic Surgery
DX: M17.11 Unilateral primary osteoarthritis, right knee (principal); Z96.651 Presence of right artificial knee joint; M25.561 Pain in right knee; Z74.09 Other reduced mobility; Z51.89 Encounter for other specified aftercare
CPT/HCPCS: 97110; 97140; 97161; 97164